=== PATIENT | female | born 1945 | race Caucasian/White ===

== ENCOUNTER 2017-08-13 02:25 | Inpatient (IN) | payer MEDICARE, BC ==
[~2017-08-13] VITALS: Ht 154.9 cm; Wt 88.6 kg
[~2017-08-13 02:25] MED LIST: CALC-1197 PO; ESCI20TA29 PO; ESTR0.3T10 PO; FISH OIL DR 1,1 EACH PO; FURO-150 PO; GABA-338 PO; HYDR12.522 PO; MULT-1141 PO; NEBI20TA2 PO; OMEP-84 PO; POTA99TA10 PO; VITC500T PO; [UNRECOGNIZED DRUG - CODE] PO
[2017-08-13] MEDS ORDERED: diazepam 5mg tablet PO ONE (02:45)
[2017-08-13] MEDS ORDERED: ondansetron/PF 4mg/2ml inj IV ONE (02:45)
[2017-08-13] MEDS ORDERED: ketorolac tromethamine 15mg/ml inj. IV ONE (04:25)
[2017-08-13] MEDS ORDERED: normal saline 1000ml 1,000 ML IV SCH (04:58)
[2017-08-13] MEDS ORDERED: ondansetron/PF 4mg/2ml inj IV PRN (05:00)
[2017-08-13] MEDS ORDERED: bisacodyl 10mg suppository rectal RC PRN (05:00)
[2017-08-13] MEDS ORDERED: HYDROcodone/acetaminophen 5mg/325mg tablet PO PRN (05:00)
[2017-08-13] MEDS ORDERED: acetaminophen 325mg tablet PO PRN ×2 (05:00)
[2017-08-13] MEDS ORDERED: acetaminophen 650mg rectal suppository RC PRN (05:00)
[2017-08-13] MEDS ORDERED: metoclopramide 5 mg/ml inj IV PRN (05:00)
[2017-08-13] MEDS ORDERED: diphenhydrAMINE 25mg capsule PO PRN (05:00)
[2017-08-13] MEDS ORDERED: magnesium hydroxide 30ml (MOM) UD suspension PO PRN (05:00)
[2017-08-13] MEDS ORDERED: HYDROcodone/acetaminophen 10/325mg tab PO PRN (05:00)
[2017-08-13] MEDS ORDERED: HYDROmorphone 1 mg/ml syringe IV PRN ×2 (05:00)
[2017-08-13] MEDS ORDERED: mag hydrox/Alum hydrox/simeth 30ml oral suspension PO PRN (05:00)
[2017-08-13] MEDS ORDERED: diphenhydrAMINE 50 mg/ml inj IV PRN (05:00)
[2017-08-13] MEDS ORDERED: glucagon, human recombinant 1mg kit SUBCUT PRN (05:05)
[2017-08-13] MEDS ORDERED: dextrose 50%-water 50ml dispensing syringe IV PRN ×2 (05:05)
[2017-08-13] MEDS ORDERED: dextrose ORAL solution 15 GM/59 ML bottle PO PRN ×2 (05:05)
[2017-08-13] MEDS ORDERED: MESSAGE TO PHARMACY PO ONE (05:05)
[2017-08-13] MEDS ORDERED: insulin Lispro (HumaLOG) vial - multi-dose SQ SCH (05:05)
[2017-08-13 05:50] VITALS: BP 156/81
[2017-08-13 06:39] LABS: BASOPHILS # (AUTO) 0.1 X10'3 (0-0.2); BASOPHILS % (AUTO) 0.8 % (0-1); EOSINOPHILS # (AUTO) 0.3 X10'3 (0-0.9); EOSINOPHILS % (AUTO) 3.6 % (0-6); HEMOGLOBIN 11.9 g/dl (12.0-16.0); LYMPHOCYTES # (AUTO) 2.9 X10'3 (1.1-4.8); LYMPHOCYTES % (AUTO) 33.6 % (21-51); MEAN CORPUSCULAR HEMOGLOBIN 32.5 PG (27.0-31.0); MEAN CORPUSCULAR VOLUME 98.7 FL (78-98); MEAN PLATELET VOLUME 7.9 FL (7.4-10.4); MONOCYTES # (AUTO) 1.7 X10'3 (0-0.9); MONOCYTES % (AUTO) 19.1 % (2-12); NEUTROPHILS # (AUTO) 3.7 X10'3 (1.8-7.7); NEUTROPHILS % (AUTO) 42.9 % (42-75); PLATELET COUNT 239 X10'3 (140-440); RED BLOOD COUNT 3.64 X10'6 (4.20-5.60); WHITE BLOOD COUNT 8.7 X10'3 (4.5-11.0)
[2017-08-13 06:47] LABS: INR 0.9 INR; PARTIAL THROMBOPLASTIN TIME 25 SECONDS (22-32); PROTHROMBIN TIME 9.7 SECONDS (9.0-12.0)
[2017-08-13 06:51] LABS: CLARITY,URINE CLEAR (Clear); COLOR,URINE YELLOW (Yellow); GLUCOSE, URINE NEGATIVE (Neg); KETONES,URINE NEGATIVE (Neg); LEUKOCYTE ESTERASE ,URINE SMALL (Neg); NITRITES, URINE NEGATIVE (Neg); OCCULT BLOOD,URINE TRACE-INTACT (Neg); PROTEIN,URINE NEGATIVE (Neg); UROBILINOGEN,URINE 0.2 E.U/dL (0.2-1.0)
[2017-08-13 06:53] LABS: UA COLLECTION TYPE CLN CATCH MIDSTREAM
[2017-08-13 07:04] LABS: BACTERIA,URINE 3+ /HPF (Neg); RBC,URINE 0-2 /HPF (0-2); SQUAMOUS EPITHELIAL CELL,UR MODERATE /LPF (FEW); WBC,URINE 0-4 /HPF (0-4)
[2017-08-13 07:06] LABS: HEMOGLOBIN A1C 5.6 % (4.5-6.2)
[2017-08-13 07:15] LABS: ALANINE AMINOTRANSFERASE 30 U/L (12-78); ALBUMIN 3.5 G/DL (3.4-5.0); ALKALINE PHOSPHATASE 78 IU/L (46-116); ANION GAP 6 (8-16); ASPARTATE AMINO TRANSFERASE 22 U/L (10-37); BILIRUBIN,TOTAL 0.5 MG/DL (0.1-1.0); BLOOD UREA NITROGEN 35 MG/DL (7-18); BUN/CREATININE RATIO 26.3 (6.6-38.0); CALCIUM 9.4 MG/DL (8.5-10.1); CHLORIDE 104 MMOL/L (99-107); CREATININE 1.33 MG/DL (0.40-0.90); GLUCOSE 90 MG/DL (70-104); POTASSIUM 3.9 MMOL/L (3.5-5.1); SODIUM 143 MMOL/L (135-145); TOTAL CARBON DIOXIDE 33.1 MMOL/L (24-32); TOTAL PROTEIN 6.9 G/DL (6.4-8.2); eGFR 39 ML/MIN
[2017-08-13] MEDS ORDERED: pantoprazole 40mg Tablet.DR PO SCH (07:30)
[2017-08-13] MEDS ORDERED: estrogen, conjugated 0.625mg tablet PO SCH (08:00)
[2017-08-13] MEDS ORDERED: heparin, porcine 5000 units/ml vial SQ SCH (08:00)
[2017-08-13] MEDS ORDERED: citalopram 20mg tablet PO SCH (08:00)
[2017-08-13] MEDS ORDERED: docusate sod 100mg capsule PO SCH (08:00)
[2017-08-13 09:00] VITALS: BP 145/63
[2017-08-13 10:00] VITALS: BP 134/66
[2017-08-13] MEDS ORDERED: ascorbic acid 500mg tablet PO SCH (20:00)
[2017-08-13] MEDS ORDERED: gabapentin 300mg capsule PO SCH (21:00)
[2017-08-13] MEDS ORDERED: temazepam 15mg capsule PO PRN (21:00)
[2017-08-14] MEDS ORDERED: HYDROchlorothiazide 25mg tablet PO SCH (08:00)
[2017-08-14] MEDS ORDERED: non-formulary drug (Potassium Gluconate 99 MG) PO SCH (08:00)
[2017-08-14] MEDS ORDERED: calcium carbonate/vitamin D3 tablet PO SCH (08:00)
[2017-08-14] MEDS ORDERED: FISH OIL PO SCH (08:00)
[2017-08-14] MEDS ORDERED: multivitamins, therapeutics tablet PO SCH (08:00)
[2017-08-14] MEDS ORDERED: FATTY ACIDS PO SCH (08:00)
[2017-08-14] MEDS ORDERED: OMEGA PO SCH (08:00)
[2017-08-14] MEDS ORDERED: furosemide 20MG tablet PO SCH (08:00)
[2017-08-14] MEDS ORDERED: ECHINACEA PO SCH (08:00)
== END 2017-08-13 15:30 | disposition home or self-care (01) | DRG 552 ==
LOC: ER 02:26 → ED HOLD 04:58 → ORTHO 4S 05:42
PROVIDERS: ADMIT Family Medicine; ATTEND Internal Medicine
DX: M54.5 Low back pain (principal); E11.42 Type 2 diabetes mellitus with diabetic polyneuropathy; I11.0 Hypertensive heart disease with heart failure; I50.30 Unspecified diastolic (congestive) heart failure; E78.00 Pure hypercholesterolemia, unspecified; G89.29 Other chronic pain; R09.02 Hypoxemia; Z90.710 Acquired absence of both cervix and uterus; Z88.0 Allergy status to penicillin; Z88.7 Allergy status to serum and vaccine; Z88.8 Allergy status to other drugs, medicaments and biological substances; Z91.012 Allergy to eggs; Z79.899 Other long term (current) drug therapy; Z85.6 Personal history of leukemia
CPT/HCPCS: 36415; 72131; 80053; 81001; 82948; 83036; 83735; 83880; 85025; 85610; 85730; 87070; 87077; 87088; 87186; 96374; 96375; 96376; 97161; 97530; 99285; J1644; J1885; J2270; J2405; J7030

== ENCOUNTER 2018-04-19 20:03 | Emergency (ER) | payer MEDICARE, BC | END 2018-04-19 22:50 | disposition left against medical advice (07) | LOC: ER 20:03 | DX: M79.606 Pain in leg, unspecified (principal); Z53.21 Procedure and treatment not carried out due to patient leaving prior to being seen by health care provider ==

== ENCOUNTER 2019-03-23 04:20 | Inpatient (IN) | payer MEDICARE, BC ==
[~2019-03-23] VITALS: Ht 154.9 cm; Wt 104.5 kg
[2019-03-23] MEDS ORDERED: methylPREDNISolone sod succ 125mg/2ml vial IV ONE (04:40)
[2019-03-23] MEDS ORDERED: ipratropium/albuterol 3ml nebule NEB ONE ×2 (04:40→06:25)
[2019-03-23] MEDS ORDERED: METO1TAB12 PO (04:44)
[2019-03-23] MEDS ORDERED: PANT-47 PO (04:44)
[2019-03-23] MEDS ORDERED: COL0.6T PO (04:44)
[2019-03-23] MEDS ORDERED: PIOG15TA8 PO (04:44)
[2019-03-23] MEDS ORDERED: LOSA25TA96 PO (04:44)
[2019-03-23] MEDS ORDERED: AMLO5TAB4 PO (04:44)
[2019-03-23] MEDS ORDERED: GABA-532 PO ×2 (04:44)
[2019-03-23] MEDS ORDERED: EST1T PO (04:44)
--- NOTE | 2019-03-23 04:50 | NUR ---
POST NEB PT COUGHED GREENISH YELLOW PHLEGMN.
--- NOTE | 2019-03-23 04:52 | NUR ---
PT REMAINS WHEEZY S/P NEB TREATMENT, BUT NOT BAD. STRIDOR AUDIBLE WHEN AUSCULTATION TO THROAT. OROPHARYNX A LITTLE RED. PT STATES IT HAS BEEN SORE, SHE HAS BEEN GARGLING WITH SALT WATER AND THAT HAS HELPED.
[2019-03-23 04:53] LABS: BASOPHILS # (AUTO) 0.1 X10'3 (0-0.2); BASOPHILS % (AUTO) 0.4 % (0-1); EOSINOPHILS # (AUTO) 0.1 X10'3 (0-0.9); EOSINOPHILS % (AUTO) 0.7 % (0-6); HEMATOCRIT 33.2 % (35.0-45.0); HEMOGLOBIN 10.9 g/dl (12.0-16.0); LYMPHOCYTES # (AUTO) 1.7 X10'3 (1.1-4.8); LYMPHOCYTES % (AUTO) 10.3 % (21-51); MEAN CORPUSCULAR HEMOGLOBIN 32.1 PG (27.0-31.0); MEAN CORPUSCULAR VOLUME 97.2 FL (78-98); MEAN PLATELET VOLUME 7.7 FL (7.4-10.4); MONOCYTES # (AUTO) 2.7 X10'3 (0-0.9); MONOCYTES % (AUTO) 16.6 % (2-12); NEUTROPHILS # (AUTO) 11.9 X10'3 (1.8-7.7); PLATELET COUNT 271 X10'3 (140-440); RED BLOOD COUNT 3.41 X10'6 (4.20-5.60); WHITE BLOOD COUNT 16.5 X10'3 (4.5-11.0)
[2019-03-23] MEDS ORDERED: furosemide 40mg/4ml inj IV ONE (04:55)
[2019-03-23 05:00] LABS: PARTIAL THROMBOPLASTIN TIME 30 SECONDS (22-32)
[2019-03-23 05:01] LABS: ALANINE AMINOTRANSFERASE 32 U/L (12-78); ALBUMIN 2.7 G/DL (3.4-5.0); ALBUMIN/GLOBULIN RATIO 0.6 (1.1-1.5); ALKALINE PHOSPHATASE 109 IU/L (46-116); ANION GAP 8 (8-16); ASPARTATE AMINO TRANSFERASE 19 U/L (10-37); BILIRUBIN,TOTAL 0.4 MG/DL (0.1-1.0); BLOOD UREA NITROGEN 18 MG/DL (7-18); BUN/CREATININE RATIO 16.4 (6.6-38.0); CALCIUM 8.9 MG/DL (8.5-10.1); CHLORIDE 104 MMOL/L (99-107); GLUCOSE 117 MG/DL (70-104); POTASSIUM 3.7 MMOL/L (3.5-5.1); SODIUM 139 MMOL/L (135-145); TOTAL CARBON DIOXIDE 26.6 MMOL/L (24-32); TOTAL PROTEIN 7.2 G/DL (6.4-8.2); eGFR 49 ML/MIN
[2019-03-23] MEDS ORDERED: albuterol 2.5 MG/3 ML nebule NEB ONE ×2 (05:20→06:25)
[2019-03-23] MEDS ORDERED: CefTRIAXone 2gm/D5W 50ml 50 ML IV ONE (05:20)
[2019-03-23] MEDS ORDERED: azithromycin/NS 500mg/250ml 250 ML IV ONE (05:20)
[2019-03-23] MEDS ORDERED: acetaminophen 325mg tablet PO ONE (06:10)
[2019-03-23 06:18] LABS: CLARITY,URINE CLEAR (Clear); COLOR,URINE STRAW (Yellow); GLUCOSE, URINE NEGATIVE (Neg); KETONES,URINE NEGATIVE (Neg); LEUKOCYTE ESTERASE ,URINE NEGATIVE (Neg); NITRITES, URINE NEGATIVE (Neg); OCCULT BLOOD,URINE LARGE (Neg); PH,URINE 5.5 (4.8-8.0); PROTEIN,URINE 100 mg/dl (Neg); UA COLLECTION TYPE CLN CATCH MIDSTREAM; UROBILINOGEN,URINE 0.2 E.U/dL (0.2-1.0)
[2019-03-23 06:20] LABS: BACTERIA,URINE 1+ /HPF (Neg); MUCUS STRANDS NONE SEEN /LPF (Neg); SQUAMOUS EPITHELIAL CELL,UR MODERATE /LPF (FEW); WBC,URINE 0-4 /HPF (0-4)
--- NOTE | 2019-03-23 06:26 | NUR ---
BELONGING LISTS:NECKLACE,WEDDING RING,EARINGS.
[2019-03-23] MEDS ORDERED: MESSAGE TO PHARMACY PO ONE (06:35)
[2019-03-23] MEDS ORDERED: ondansetron/PF 4mg/2ml inj IV PRN (06:35)
[2019-03-23] MEDS ORDERED: albuterol 2.5 MG/3 ML nebule NEB PRN (06:35)
[2019-03-23] MEDS ORDERED: dextrose 50%-water 50ml dispensing syringe IV PRN ×2 (06:35)
[2019-03-23] MEDS ORDERED: dextrose ORAL solution 15 GM/59 ML bottle PO PRN ×2 (06:35)
[2019-03-23] MEDS ORDERED: glucagon, human recombinant 1mg kit SUBCUT PRN (06:35)
[2019-03-23] MEDS ORDERED: acetaminophen 325mg tablet PO PRN ×2 (06:35)
[2019-03-23] MEDS ORDERED: mag hydrox/Alum hydrox/simeth 30ml oral suspension PO PRN (06:35)
[2019-03-23] MEDS ORDERED: magnesium hydroxide 30ml (MOM) UD suspension PO PRN (06:35)
[2019-03-23] MEDS ORDERED: HYDROcodone/acetaminophen 5mg/325mg tablet PO PRN (06:35)
[2019-03-23] MEDS ORDERED: HYDROcodone/acetaminophen 10/325mg tab PO PRN (06:35)
[2019-03-23] MEDS ORDERED: insulin Lispro (HumaLOG) vial - multi-dose SQ SCH (06:35)
[2019-03-23] MEDS ORDERED: albuterol 2.5 MG/3 ML nebule ONE (06:38)
[2019-03-23 06:43] LABS: NUCLEATED RED BLOOD CELLS 1 /100WBC (0-0); PLATELET ESTIMATE NORMAL; TOTAL CELLS COUNTED 100
[2019-03-23 06:44] LABS: ANISOCYTOSIS 1+; POLYCHROMASIA 1+; TOXIC GRANULATION 2+
[2019-03-23 06:55] LABS: ABG BASE EXCESS -0.4 mmol/L (-2.0-3.0); ABG HCO3 23.9 mmol/L (22.0-26.0); ABG OXYGEN SATURATION 92.5 % (95-98); ABG PCO2 (T) 38.2 mmHg (35.0-45.0); ABG PH (T) 7.415 (7.350-7.450); ABG PO2 (T) 66.6 mmHg (83-108); ALLEN'S TEST Positive; FCOHb 0.3 % (0.5-1.5); FLOW 2 L/min; FMetHb 0.2 % (0.3-1.12); TOTAL HEMOGLOBIN 10.3 G/dl (12.0-16.0)
[2019-03-23] MEDS ORDERED: ipratropium/albuterol 3ml nebule NEB SCH (07:00)
--- NOTE | 2019-03-23 07:40 | NUR ---
patient on bsc.
[2019-03-23] MEDS ORDERED: levalbuterol 0.63mg/3ml nebule IH PRN (07:45)
[2019-03-23] MEDS: HYDROchlorothiazide 25mg tablet PO SCH (07:48)
[2019-03-23] MEDS: gabapentin 300mg capsule PO SCH ×2 (07:49→20:04)
[2019-03-23] MEDS: calcium carbonate/vitamin D3 tablet PO SCH (07:49)
[2019-03-23] MEDS: metoprolol tartrate 50mg tablet PO SCH (07:49)
[2019-03-23] MEDS: citalopram 20mg tablet PO SCH (07:50)
[2019-03-23] MEDS: ascorbic acid 500mg tablet PO SCH ×2 (07:50→20:04)
[2019-03-23] MEDS: pantoprazole 40mg Tablet.DR PO SCH (07:50)
[2019-03-23] MEDS: multivitamins, therapeutics tablet PO SCH (07:50)
[2019-03-23] MEDS: amLODIPine 5mg tablet PO SCH (07:50)
[2019-03-23] MEDS: methylPREDNISolone sod succ 125mg/2ml vial IV SCH ×3 (07:51→20:04)
[2019-03-23] MEDS: enoxaparin 40mg/0.4ml syringe SUBCUT SCH (07:51)
[2019-03-23] MEDS: azithromycin/NS 500mg/250ml 250 ML IV SCH (07:54)
[2019-03-23] MEDS ORDERED: furosemide 20MG tablet PO SCH (08:00)
[2019-03-23] MEDS ORDERED: ECHINACEA PO SCH (08:00)
[2019-03-23] MEDS ORDERED: pioglitazone 15mg tablet PO SCH (08:00)
--- NOTE | 2019-03-23 08:06 | NUR ---
received pt report from Teto CARVALHO. All questions answered.
[2019-03-23 08:27] LABS: D-DIMER 1.14 MG/L FEU (0-0.50)
[2019-03-23 08:36] VITALS: BP 122/51
--- NOTE | 2019-03-23 08:36 | NUR ---
pt arrived to floor via gurney and ambulated to bed SBA. pt attached to cardiac monitoring; VSS. pt oriented to room and call light.
[2019-03-23 08:45] LABS: HEMOGLOBIN A1C 6.1 % (4.5-6.2)
--- NOTE | 2019-03-23 09:03 | NUR ---
LACIC ACID 4.6. DR MUNGUIA INFORMED. NO NEW ORDERS AT THIS TIME.
[2019-03-23] MEDS: omega-3 acid ethyl esters 1GM capsule PO SCH (10:28)
[2019-03-23] MEDS: losartan 50mg tablet PO SCH (10:28)
[2019-03-23] MEDS: colchicine 0.6mg tablet PO SCH (10:41)
[2019-03-23 11:00] VITALS: BP 138/60
[2019-03-23 15:00] VITALS: BP 164/64
[2019-03-23] MEDS: ipratropium 0.5 MG/2.5ML nebule IH SCH ×2 (15:52→20:38)
[2019-03-23] MEDS: levalbuterol 0.63mg/3ml nebule IH SCH ×2 (15:52→20:38)
--- NOTE | 2019-03-23 18:34 | NUR ---
Problems reprioritized. Patient report given, questions answered & plan of care reviewed with Rocio CARVALHO.
[2019-03-23 19:00] VITALS: BP 144/67
[2019-03-23] MEDS: lactobacillus rhamnosus 10,000 MMU CELLS/CAPSULE PO SCH (20:04)
[2019-03-23] MEDS ORDERED: hydrOXYzine 25 MG tablet PO ONE (20:15)
[2019-03-23] MEDS: insulin glargine (Lantus) pen - multi-dose SQ SCH (21:00)
[2019-03-23 23:00] VITALS: BP 152/60
[2019-03-24] VITALS (7 sets, daily range): BP systolic 143–170; BP diastolic 63–72
[2019-03-24] MEDS ORDERED: Melatonin 3mg tablet PO PRN (01:05)
--- NOTE | 2019-03-24 01:13 | NUR ---
pt c/o diarrhea, stated that " I have IBS for years." Callled Dr. Kasper, he said the [facility] doctor can address that .
[2019-03-24] MEDS: ipratropium 0.5 MG/2.5ML nebule IH SCH ×4 (02:52→19:35)
[2019-03-24] MEDS: levalbuterol 0.63mg/3ml nebule IH SCH ×4 (02:53→19:35)
--- NOTE | 2019-03-24 06:00 | NUR ---
Patient in room PCU 3013. I have received report from Rocio CARVALHO and had the opportunity to ask questions and assume patient care.
[2019-03-24 06:40] LABS: ALBUMIN 2.6 G/DL (3.4-5.0); ANION GAP 12 (8-16); BLOOD UREA NITROGEN 32 MG/DL (7-18); BUN/CREATININE RATIO 24.4 (6.6-38.0); CALCIUM 8.5 MG/DL (8.5-10.1); CHLORIDE 102 MMOL/L (99-107); CHOL/HDL RATIO 3.1 (0.00-4.99); CHOLESTEROL 138 MG/DL (0-200); CREATININE 1.31 MG/DL (0.40-0.90); GLUCOSE 137 MG/DL (70-104); HDL CHOLESTEROL 44 MG/DL (35-60); LDL CHOLESTEROL 83 MG/DL (50-100); POTASSIUM 3.3 MMOL/L (3.5-5.1); SODIUM 141 MMOL/L (135-145); TOTAL CARBON DIOXIDE 27.2 MMOL/L (24-32); TRIGLYCERIDES 84 MG/DL (20-135); eGFR 40 ML/MIN
[2019-03-24 07:26] LABS: BASOPHILS # (AUTO) 0.1 X10'3 (0-0.2); BASOPHILS % (AUTO) 0.5 % (0-1); EOSINOPHILS % (AUTO) 0 % (0-6); HEMATOCRIT 33.3 % (35.0-45.0); LYMPHOCYTES # (AUTO) 1.5 X10'3 (1.1-4.8); LYMPHOCYTES % (AUTO) 9.5 % (21-51); MEAN CORPUSCULAR HEMOGLOBIN 32.2 PG (27.0-31.0); MEAN CORPUSCULAR HGB CONC 33.1 g/dL (33.0-36.5); MEAN CORPUSCULAR VOLUME 97.2 FL (78-98); MONOCYTES # (AUTO) 1.6 X10'3 (0-0.9); MONOCYTES % (AUTO) 10.1 % (2-12); NEUTROPHILS # (AUTO) 12.9 X10'3 (1.8-7.7); NEUTROPHILS % (AUTO) 79.9 % (42-75); PLATELET COUNT 288 X10'3 (140-440); RED BLOOD COUNT 3.42 X10'6 (4.20-5.60); RED CELL DISTRIBUTION WIDTH 15.1 % (11.5-14.5); WHITE BLOOD COUNT 16.1 X10'3 (4.5-11.0)
[2019-03-24] MEDS: CefTRIAXone/D5W-Rocephin 1gm 50 ML IV SCH (07:44)
[2019-03-24] MEDS: azithromycin/NS 500mg/250ml 250 ML IV SCH (08:43)
--- NOTE | 2019-03-24 09:28 | NUR ---
DM consult: Patient's A1c is 6.1; DM ed not warranted at this time. Will continue to follow. Addendum: 03/24/19 at [address] Amended: Links added.
[2019-03-24 09:35] LABS: ANISOCYTOSIS 1+; PLATELET ESTIMATE NORMAL; TOTAL CELLS COUNTED 100
[2019-03-24 09:36] LABS: TOXIC GRANULATION 2+
[2019-03-24] MEDS: omega-3 acid ethyl esters 1GM capsule PO SCH (10:07)
[2019-03-24] MEDS: lactobacillus rhamnosus 10,000 MMU CELLS/CAPSULE PO SCH ×2 (10:07→21:16)
[2019-03-24] MEDS: colchicine 0.6mg tablet PO SCH (10:07)
[2019-03-24] MEDS: ascorbic acid 500mg tablet PO SCH ×2 (10:08→21:17)
[2019-03-24] MEDS: multivitamins, therapeutics tablet PO SCH (10:08)
[2019-03-24] MEDS: calcium carbonate/vitamin D3 tablet PO SCH (10:09)
[2019-03-24] MEDS: pantoprazole 40mg Tablet.DR PO SCH (10:09)
[2019-03-24] MEDS: amLODIPine 5mg tablet PO SCH (10:10)
[2019-03-24] MEDS: gabapentin 300mg capsule PO SCH ×2 (10:10→21:16)
[2019-03-24] MEDS: losartan 50mg tablet PO SCH (10:11)
[2019-03-24] MEDS: citalopram 20mg tablet PO SCH (10:11)
[2019-03-24] MEDS: enoxaparin 40mg/0.4ml syringe SUBCUT SCH (10:12)
[2019-03-24] MEDS: methylPREDNISolone sod succ 125mg/2ml vial IV SCH ×3 (10:13→21:16)
[2019-03-24] MEDS: metoprolol tartrate 50mg tablet PO SCH (10:14)
[2019-03-24] MEDS: HYDROchlorothiazide 25mg tablet PO SCH (10:15)
--- NOTE | 2019-03-24 10:35 | NUR ---
Patient provided with vibratory mouth piece per MD request. Educated patient on proper use and she demonstrated proper use.
[2019-03-24] MEDS: montelukast 10mg tablet PO SCH (17:32)
--- NOTE | 2019-03-24 17:32 | NUR ---
Pt starting on Singulair, medication printout provided per pt request.
--- NOTE | 2019-03-24 18:00 | NUR ---
Problems reprioritized. Patient report given, questions answered & plan of care reviewed with Rocio CARVALHO.
--- NOTE | 2019-03-24 18:15 | NUR ---
Patient in room PCU 3013. I have received report from Senia CARVALHO and had the opportunity to ask questions and assume patient care.
[2019-03-24] MEDS ORDERED: potassium CL 10mEq/100ml bag 100 ML IV PRN (19:40)
[2019-03-24] MEDS ORDERED: potassium Cl 20 mEq SR tablet PO PRN (19:40)
[2019-03-24] MEDS: insulin glargine (Lantus) pen - multi-dose SQ SCH (21:00)
[2019-03-24] MEDS: potassium Cl 20 mEq SR tablet PO PRN (21:17)
[2019-03-25] MEDS: ipratropium 0.5 MG/2.5ML nebule IH SCH ×2 (02:48→09:53)
[2019-03-25] MEDS: levalbuterol 0.63mg/3ml nebule IH SCH ×2 (02:48→09:53)
[2019-03-25] MEDS: potassium Cl 20 mEq SR tablet PO PRN (02:51)
[2019-03-25 03:00] VITALS: BP 161/65
--- NOTE | 2019-03-25 06:24 | NUR ---
Problems reprioritized. Patient report given, questions answered & plan of care reviewed with Nicole CARVALHO.
--- NOTE | 2019-03-25 06:26 | NUR ---
Patient in room PCU 3013. I have received report from Rocio CARVALHO and had the opportunity to ask questions and assume patient care.
[2019-03-25 06:50] LABS: BASOPHILS # (AUTO) 0.1 X10'3 (0-0.2); BASOPHILS % (AUTO) 0.5 % (0-1); EOSINOPHILS % (AUTO) 0.2 % (0-6); HEMATOCRIT 33.2 % (35.0-45.0); HEMOGLOBIN 11.1 g/dl (12.0-16.0); LYMPHOCYTES # (AUTO) 1.7 X10'3 (1.1-4.8); MEAN CORPUSCULAR HEMOGLOBIN 32.7 PG (27.0-31.0); MEAN CORPUSCULAR HGB CONC 33.4 g/dL (33.0-36.5); MEAN PLATELET VOLUME 7.9 FL (7.4-10.4); MONOCYTES # (AUTO) 1.8 X10'3 (0-0.9); MONOCYTES % (AUTO) 11.5 % (2-12); NEUTROPHILS # (AUTO) 12.1 X10'3 (1.8-7.7); NEUTROPHILS % (AUTO) 76.8 % (42-75); PLATELET COUNT 315 X10'3 (140-440); RED BLOOD COUNT 3.38 X10'6 (4.20-5.60); RED CELL DISTRIBUTION WIDTH 14.9 % (11.5-14.5); WHITE BLOOD COUNT 15.7 X10'3 (4.5-11.0)
[2019-03-25 07:00] VITALS: BP 150/67
[2019-03-25 07:06] LABS: ALBUMIN 2.6 G/DL (3.4-5.0); ANION GAP 11 (8-16); BLOOD UREA NITROGEN 43 MG/DL (7-18); BUN/CREATININE RATIO 32.8 (6.6-38.0); CALCIUM 8.5 MG/DL (8.5-10.1); CHLORIDE 104 MMOL/L (99-107); CREATININE 1.31 MG/DL (0.40-0.90); GLUCOSE 128 MG/DL (70-104); POTASSIUM 3.5 MMOL/L (3.5-5.1); SODIUM 141 MMOL/L (135-145); eGFR 40 ML/MIN
[2019-03-25] MEDS: azithromycin/NS 500mg/250ml 250 ML IV SCH (08:53)
[2019-03-25] MEDS: omega-3 acid ethyl esters 1GM capsule PO SCH (08:54)
[2019-03-25] MEDS: ascorbic acid 500mg tablet PO SCH ×2 (08:54→20:13)
[2019-03-25] MEDS: HYDROchlorothiazide 25mg tablet PO SCH (08:54)
[2019-03-25] MEDS: colchicine 0.6mg tablet PO SCH (08:54)
[2019-03-25] MEDS: multivitamins, therapeutics tablet PO SCH (08:55)
[2019-03-25] MEDS: losartan 50mg tablet PO SCH (08:55)
[2019-03-25] MEDS: citalopram 20mg tablet PO SCH (08:55)
[2019-03-25] MEDS: metoprolol tartrate 50mg tablet PO SCH (08:55)
[2019-03-25] MEDS: pantoprazole 40mg Tablet.DR PO SCH (08:55)
[2019-03-25] MEDS: calcium carbonate/vitamin D3 tablet PO SCH (08:55)
[2019-03-25] MEDS: montelukast 10mg tablet PO SCH (08:55)
[2019-03-25] MEDS: gabapentin 300mg capsule PO SCH ×2 (08:56→20:14)
[2019-03-25] MEDS: enoxaparin 40mg/0.4ml syringe SUBCUT SCH (08:56)
[2019-03-25] MEDS: amLODIPine 5mg tablet PO SCH (08:56)
[2019-03-25] MEDS: lactobacillus rhamnosus 10,000 MMU CELLS/CAPSULE PO SCH ×2 (08:56→20:13)
[2019-03-25] MEDS: CefTRIAXone/D5W-Rocephin 1gm 50 ML IV SCH (08:57)
[2019-03-25] MEDS: methylPREDNISolone sod succ 125mg/2ml vial IV SCH ×2 (09:56→20:14)
[2019-03-25] MEDS ORDERED: albuterol 2.5 MG/3 ML nebule NEB PRN (10:00)
[2019-03-25 10:55] LABS: OCCULT BLOOD STOOL NEGATIVE (Neg)
[2019-03-25 11:00] VITALS: BP 145/52
[2019-03-25 15:00] VITALS: BP 125/71
[2019-03-25] MEDS: ipratropium/albuterol 3ml nebule NEB SCH ×2 (15:42→21:08)
--- NOTE | 2019-03-25 18:17 | NUR ---
Patient in room PCU 3013. I have received report from Radha CARVALHO and had the opportunity to ask questions and assume patient care.
--- NOTE | 2019-03-25 18:30 | NUR ---
Problems reprioritized. Patient report given, questions answered & plan of care reviewed with Rocio CARVALHO.
[2019-03-25 19:00] VITALS: BP 154/52
[2019-03-25] MEDS: insulin glargine (Lantus) pen - multi-dose SQ SCH (21:00)
[2019-03-25 23:00] VITALS: BP 149/59
[2019-03-26 03:00] VITALS: BP 159/63
[2019-03-26 06:00] VITALS: BP 174/71
--- NOTE | 2019-03-26 06:18 | NUR ---
Problems reprioritized. Patient report given, questions answered & plan of care reviewed with Radha CARVALHO.
--- NOTE | 2019-03-26 06:27 | NUR ---
Patient in room PCU 3013. I have received report from Rocio CARVALHO and had the opportunity to ask questions and assume patient care.
[2019-03-26] MEDS: azithromycin/NS 500mg/250ml 250 ML IV SCH (07:13)
[2019-03-26] MEDS: enoxaparin 40mg/0.4ml syringe SUBCUT SCH (07:13)
[2019-03-26] MEDS: colchicine 0.6mg tablet PO SCH (07:14)
[2019-03-26] MEDS: citalopram 20mg tablet PO SCH (07:14)
[2019-03-26] MEDS: multivitamins, therapeutics tablet PO SCH (07:14)
[2019-03-26] MEDS: methylPREDNISolone sod succ 125mg/2ml vial IV SCH (07:14)
[2019-03-26 07:15] VITALS: BP_SYST 174
[2019-03-26] MEDS: omega-3 acid ethyl esters 1GM capsule PO SCH (07:15)
[2019-03-26] MEDS: pantoprazole 40mg Tablet.DR PO SCH (07:15)
[2019-03-26] MEDS: metoprolol tartrate 50mg tablet PO SCH (07:15)
[2019-03-26] MEDS: HYDROchlorothiazide 25mg tablet PO SCH (07:15)
[2019-03-26] MEDS: lactobacillus rhamnosus 10,000 MMU CELLS/CAPSULE PO SCH (07:16)
[2019-03-26] MEDS: calcium carbonate/vitamin D3 tablet PO SCH (07:16)
[2019-03-26] MEDS: ascorbic acid 500mg tablet PO SCH (07:16)
[2019-03-26] MEDS: montelukast 10mg tablet PO SCH (07:16)
[2019-03-26] MEDS: gabapentin 300mg capsule PO SCH (07:16)
[2019-03-26] MEDS: amLODIPine 5mg tablet PO SCH (07:16)
[2019-03-26] MEDS: losartan 50mg tablet PO SCH (07:16)
[2019-03-26 07:27] LABS: BASOPHILS # (AUTO) 0.1 X10'3 (0-0.2); BASOPHILS % (AUTO) 0.7 % (0-1); EOSINOPHILS % (AUTO) 0 % (0-6); HEMATOCRIT 35.6 % (35.0-45.0); HEMOGLOBIN 11.9 g/dl (12.0-16.0); LYMPHOCYTES # (AUTO) 1.8 X10'3 (1.1-4.8); MEAN CORPUSCULAR HEMOGLOBIN 32.3 PG (27.0-31.0); MEAN CORPUSCULAR HGB CONC 33.4 g/dL (33.0-36.5); MEAN CORPUSCULAR VOLUME 96.8 FL (78-98); MEAN PLATELET VOLUME 7.9 FL (7.4-10.4); MONOCYTES # (AUTO) 2.2 X10'3 (0-0.9); MONOCYTES % (AUTO) 13.2 % (2-12); NEUTROPHILS # (AUTO) 12.3 X10'3 (1.8-7.7); NEUTROPHILS % (AUTO) 75.1 % (42-75); PLATELET COUNT 334 X10'3 (140-440); RED BLOOD COUNT 3.67 X10'6 (4.20-5.60); WHITE BLOOD COUNT 16.4 X10'3 (4.5-11.0)
[2019-03-26] MEDS: CefTRIAXone/D5W-Rocephin 1gm 50 ML IV SCH (08:30)
[2019-03-26] MEDS: ipratropium/albuterol 3ml nebule NEB SCH (09:04)
[2019-03-26] MEDS ORDERED: PRED20TA PO (11:42)
[2019-03-26] MEDS ORDERED: IPRA3AMP9 NEB (11:42)
[2019-03-26] MEDS ORDERED: MONT10TA24 PO (11:42)
[2019-03-26] MEDS ORDERED: CEFU500T66 PO (11:42)
--- NOTE | 2019-03-26 13:45 | NUR ---
Pt discharged. IV d/c'd, tele removed, all belongings sent with pt and , and pt wheeled down to private vehicle.
[2019-03-26 15:13] LABS: NUCLEATED RED BLOOD CELLS 1 /100WBC (0-0); TOTAL CELLS COUNTED 100
[2019-03-26 15:14] LABS: TOXIC GRANULATION 3+; TOXIC VACUOLATION 1+
[2019-03-26 15:15] LABS: ANISOCYTOSIS 1+; PLATELET ESTIMATE NORMAL; POLYCHROMASIA FEW
[2019-03-26 15:16] LABS: SPHEROCYTES 1+
== END 2019-03-26 13:45 | disposition home or self-care (01) | DRG 871 ==
LOC: ER 04:21 → PCU 3S 08:14
PROVIDERS: ADMIT Hospitalist; ATTEND Family Medicine
PROC: CB121ZZ Planar Nuclear Medicine Imaging of Lungs and Bronchi using Technetium 99m (Tc-99m) (ICD-10-PCS; principal; 2019-03-23)
DX: A41.9 Sepsis, unspecified organism (principal); E43 Unspecified severe protein-calorie malnutrition; J96.00 Acute respiratory failure, unspecified whether with hypoxia or hypercapnia; J18.9 Pneumonia, unspecified organism; J44.1 Chronic obstructive pulmonary disease with (acute) exacerbation; I50.32 Chronic diastolic (congestive) heart failure; Z68.41 Body mass index [BMI] 40.0-44.9, adult; Z94.81 Bone marrow transplant status; I48.92 Unspecified atrial flutter; J44.0 Chronic obstructive pulmonary disease with (acute) lower respiratory infection; D64.9 Anemia, unspecified; E11.42 Type 2 diabetes mellitus with diabetic polyneuropathy; Z96.641 Presence of right artificial hip joint; G89.29 Other chronic pain; M54.9 Dorsalgia, unspecified; E78.00 Pure hypercholesterolemia, unspecified; E78.5 Hyperlipidemia, unspecified; Z79.84 Long term (current) use of oral hypoglycemic drugs; Z85.6 Personal history of leukemia; Z88.0 Allergy status to penicillin; Z88.7 Allergy status to serum and vaccine; Z88.8 Allergy status to other drugs, medicaments and biological substances; Z91.012 Allergy to eggs; Z87.891 Personal history of nicotine dependence; Z90.710 Acquired absence of both cervix and uterus; Z98.41 Cataract extraction status, right eye; Z98.42 Cataract extraction status, left eye; Z98.51 Tubal ligation status; Z98.891 History of uterine scar from previous surgery; Z79.01 Long term (current) use of anticoagulants; Z79.4 Long term (current) use of insulin
CPT/HCPCS: 36415; 36600; 71045; 78582; 80048; 80053; 80061; 81001; 82272; 82803; 82948; 83036; 83605; 83880; 84145; 84484; 85018; 85025; 85379; 85610; 85730; 87040; 87070; 87081; 93005; 93306; 94640; 94760; 96365; 96368; 96375; 97110; 97116; 97161; 97530; 99285; A9539; A9540; G0378; J0456; J0696; J1650; J1815; J1940; J2930; J7614

== ENCOUNTER 2019-10-20 11:04 | Inpatient (IN) | payer MEDICARE, OTHER ==
[~2019-10-20] VITALS: Ht 157.5 cm; Wt 102.3 kg
[~2019-10-20 11:04] MED LIST changes: +AMLO5TAB4 PO; +CEFU500T66 PO; +COL0.6T PO; +EST1T PO; -ESTR0.3T10 PO; -FURO-150 PO; -GABA-338 PO; +GABA-532 PO; -HYDR12.522 PO; +IPRA3AMP9 NEB; +LOSA25TA96 PO; +METO1TAB12 PO; +MONT10TA26 PO; -NEBI20TA2 PO; -OMEP-84 PO; +PANT-47 PO; +PIOG15TA8 PO; -POTA99TA10 PO
[2019-10-20] MEDS ORDERED: methylPREDNISolone sod succ 125mg/2ml vial IV ONE (13:45)
[2019-10-20] MEDS ORDERED: ipratropium/albuterol 3ml nebule NEB ONE (13:45)
[2019-10-20] MEDS ORDERED: furosemide 10 MG/1 ML 10ml inj IV ONE (13:45)
[2019-10-20 14:42] LABS: BASOPHILS # (AUTO) 0.1 X10'3 (0-0.2); BASOPHILS % (AUTO) 0.6 % (0-1); EOSINOPHILS % (AUTO) 0.4 % (0-6); HEMATOCRIT 36.2 % (35.0-45.0); HEMOGLOBIN 12.2 g/dl (12.0-16.0); LYMPHOCYTES # (AUTO) 0.8 X10'3 (1.1-4.8); LYMPHOCYTES % (AUTO) 8.8 % (21-51); MEAN CORPUSCULAR HEMOGLOBIN 31.6 PG (27.0-31.0); MEAN CORPUSCULAR HGB CONC 33.8 g/dL (33.0-36.5); MEAN CORPUSCULAR VOLUME 93.5 FL (78-98); MEAN PLATELET VOLUME 8.5 FL (7.4-10.4); MONOCYTES % (AUTO) 11.3 % (2-12); NEUTROPHILS # (AUTO) 7.1 X10'3 (1.8-7.7); NEUTROPHILS % (AUTO) 78.9 % (42-75); PLATELET COUNT 204 X10'3 (140-440); RED BLOOD COUNT 3.87 X10'6 (4.20-5.60); RED CELL DISTRIBUTION WIDTH 16.4 % (11.5-14.5)
[2019-10-20 15:08] LABS: ALANINE AMINOTRANSFERASE 24 U/L (12-78); ALBUMIN 3.1 G/DL (3.4-5.0); ALBUMIN/GLOBULIN RATIO 0.8 (1.1-1.5); ALKALINE PHOSPHATASE 92 IU/L (46-116); ANION GAP 6 (8-16); ASPARTATE AMINO TRANSFERASE 34 U/L (10-37); BILIRUBIN,TOTAL 0.2 MG/DL (0.1-1.0); BLOOD UREA NITROGEN 12 MG/DL (7-18); BUN/CREATININE RATIO 10.4 (6.6-38.0); CALCIUM 8.2 MG/DL (8.5-10.1); CHLORIDE 103 MMOL/L (99-107); CREATININE 1.15 MG/DL (0.40-0.90); GLUCOSE 85 MG/DL (70-104); SODIUM 143 MMOL/L (135-145); TOTAL CARBON DIOXIDE 33.9 MMOL/L (24-32); eGFR 46 ML/MIN
[2019-10-20 15:09] LABS: POTASSIUM 3.7 MMOL/L (3.5-5.1)
[2019-10-20] MEDS ORDERED: enoxaparin 100mg/ml syringe SUBCUT ONE (15:10)
[2019-10-20] MEDS ORDERED: magnesium 2GM in 50ml NS 50 ML IV PRN (16:10)
[2019-10-20] MEDS ORDERED: ondansetron/PF 4mg/2ml inj IV PRN (16:10)
[2019-10-20] MEDS ORDERED: oseltamivir phos 75mg capsule PO ONE (16:10)
[2019-10-20] MEDS ORDERED: acetaminophen 325mg tablet PO PRN ×2 (16:10)
[2019-10-20] MEDS ORDERED: magnesium Cl slow-release 64mg tablet PO PRN (16:10)
[2019-10-20] MEDS ORDERED: potassium CL 10mEq/100ml bag 100 ML IV PRN ×2 (16:10)
[2019-10-20] MEDS ORDERED: morphine 2 MG/ML inj. syringe IV PRN ×2 (16:10)
[2019-10-20] MEDS ORDERED: HYDROcodone/acetaminophen 5mg/325mg tablet PO PRN (16:10)
[2019-10-20] MEDS ORDERED: potassium Cl 20 mEq SR tablet PO PRN (16:10)
[2019-10-20] MEDS ORDERED: magnesium 4gm in 100ml NS 100 ML IV PRN (16:10)
[2019-10-20] MEDS ORDERED: HYDROcodone/acetaminophen 10/325mg tab PO PRN (16:10)
[2019-10-20] MEDS ORDERED: insulin Lispro (HumaLOG) vial - multi-dose SQ SCH (16:35)
[2019-10-20] MEDS ORDERED: glucagon, human recombinant 1mg kit SUBCUT PRN (16:35)
[2019-10-20] MEDS ORDERED: dextrose 50%-water 50ml dispensing syringe IV PRN ×2 (16:35)
[2019-10-20] MEDS ORDERED: dextrose ORAL solution 15 GM/59 ML bottle PO PRN ×2 (16:35)
[2019-10-20] MEDS ORDERED: MESSAGE TO PHARMACY PO ONE (16:35)
[2019-10-20 17:32] LABS: CLARITY,URINE CLEAR (Clear); COLOR,URINE YELLOW (Yellow); GLUCOSE, URINE NEGATIVE (Neg); KETONES,URINE NEGATIVE (Neg); LEUKOCYTE ESTERASE ,URINE NEGATIVE (Neg); NITRITES, URINE NEGATIVE (Neg); OCCULT BLOOD,URINE MODERATE (Neg); PROTEIN,URINE 100 mg/dl (Neg); UROBILINOGEN,URINE 0.2 E.U/dL (0.2-1.0)
[2019-10-20] MEDS: levoFLOXACIN-Levaquin 500mg/D5 100 ML IV SCH (17:33)
[2019-10-20 17:36] LABS: UA COLLECTION TYPE CLN CATCH MIDSTREAM
[2019-10-20 17:37] LABS: BACTERIA,URINE NONE SEEN /HPF (Neg); MUCUS STRANDS NONE SEEN /LPF (Neg); SQUAMOUS EPITHELIAL CELL,UR FEW /LPF (FEW); WBC,URINE NONE SEEN /HPF (0-4)
[2019-10-20 17:46] LABS: HEMOGLOBIN A1C 6.2 % (4.5-6.2)
--- NOTE | 2019-10-20 18:18 | NUR ---
Patient in room [facility]. I have received report from Merna CARVALHO and had the opportunity to ask questions and assume patient care. Addendum: 10/20/19 at 1840 by Sukhjinder Jose RN Patient in room [facility]010. I have received report from Marcela CARVALHO and had the opportunity to ask questions and assume patient care.
--- NOTE | 2019-10-20 18:39 | NUR ---
Problems reprioritized. Patient report given, questions answered & plan of care reviewed with MAIA Dalal.
[2019-10-20] MEDS: heparin, porcine 5000 units/ml vial SQ SCH (19:49)
[2019-10-20] MEDS: docusate sod 100mg capsule PO SCH (19:49)
[2019-10-20] MEDS: methylPREDNISolone sod succ/PF 40mg inj. IV SCH (19:50)
[2019-10-20] MEDS: K and/or MAG REPLACEMENT MC SCH (19:50)
[2019-10-20] MEDS: insulin glargine (Lantus) pen - multi-dose SQ SCH (21:00)
[2019-10-20] MEDS ORDERED: temazepam 15mg capsule PO PRN (21:00)
[2019-10-20] MEDS: oseltamivir phos 75mg capsule PO SCH (21:40)
[2019-10-20 22:00] VITALS: BP 185/79
--- NOTE | 2019-10-20 22:47 | NUR ---
Page Sent PAGER ID: [phone] MESSAGE: pt in [id number] Veronique Childress 74 y/o female here for exac COPD and Flu A positive. BP is 185/79, pt takes anti-HTN at home has not taken them today.- [place] [id number]
[2019-10-20] MEDS ORDERED: losartan 50mg tablet PO ONE (23:20)
[2019-10-20] MEDS ORDERED: metoprolol tartrate 50mg tablet PO ONE (23:20)
[2019-10-20] MEDS ORDERED: amLODIPine 5mg tablet PO ONE (23:20)
[2019-10-21] VITALS (7 sets, daily range): BP systolic 112–188; BP diastolic 54–73
[2019-10-21 05:36] LABS: ALBUMIN 2.9 G/DL (3.4-5.0); ANION GAP 9 (8-16); BLOOD UREA NITROGEN 18 MG/DL (7-18); BUN/CREATININE RATIO 14.8 (6.6-38.0); CALCIUM 8.4 MG/DL (8.5-10.1); CHLORIDE 102 MMOL/L (99-107); CREATININE 1.22 MG/DL (0.40-0.90); GLUCOSE 146 MG/DL (70-104); MAGNESIUM 1.6 MG/DL (1.5-2.4); POTASSIUM 3.2 MMOL/L (3.5-5.1); SODIUM 143 MMOL/L (135-145); TOTAL CARBON DIOXIDE 32.1 MMOL/L (24-32); eGFR 43 ML/MIN
[2019-10-21] MEDS: potassium Cl 20 mEq SR tablet PO PRN ×3 (05:43→16:17)
[2019-10-21 06:17] LABS: BASOPHILS % (AUTO) 0.6 % (0-1); EOSINOPHILS % (AUTO) 0 % (0-6); HEMATOCRIT 35.4 % (35.0-45.0); HEMOGLOBIN 11.8 g/dl (12.0-16.0); LYMPHOCYTES # (AUTO) 0.9 X10'3 (1.1-4.8); LYMPHOCYTES % (AUTO) 20.6 % (21-51); MEAN CORPUSCULAR HEMOGLOBIN 31.1 PG (27.0-31.0); MEAN CORPUSCULAR HGB CONC 33.3 g/dL (33.0-36.5); MEAN CORPUSCULAR VOLUME 93.3 FL (78-98); MEAN PLATELET VOLUME 8.5 FL (7.4-10.4); MONOCYTES # (AUTO) 0.4 X10'3 (0-0.9); MONOCYTES % (AUTO) 7.6 % (2-12); NEUTROPHILS # (AUTO) 3.3 X10'3 (1.8-7.7); NEUTROPHILS % (AUTO) 71.2 % (42-75); PLATELET COUNT 214 X10'3 (140-440); RED BLOOD COUNT 3.79 X10'6 (4.20-5.60); RED CELL DISTRIBUTION WIDTH 16.4 % (11.5-14.5); WHITE BLOOD COUNT 4.6 X10'3 (4.5-11.0)
--- NOTE | 2019-10-21 06:21 | NUR ---
Problems reprioritized. Patient report given, questions answered & plan of care reviewed with Glenis CARVALHO.
--- NOTE | 2019-10-21 06:36 | NUR ---
Patient in room PCU 3010. I have received report from NICOLE and had the opportunity to ask questions and assume patient care. PT RESTING COMFORTABLY IN BED
[2019-10-21] MEDS ORDERED: furosemide 40mg/4ml inj IV SCH (08:00)
[2019-10-21] MEDS: K and/or MAG REPLACEMENT MC SCH ×2 (08:00→20:00)
[2019-10-21] MEDS ORDERED: levoFLOXACIN-Levaquin 500mg/D5 100 ML IV SCH (08:00)
[2019-10-21] MEDS: albuterol 2.5 MG/3 ML nebule NEB SCH ×5 (08:00→23:44)
[2019-10-21] MEDS: docusate sod 100mg capsule PO SCH ×2 (08:00→20:00)
[2019-10-21] MEDS: methylPREDNISolone sod succ/PF 40mg inj. IV SCH ×2 (08:39→22:55)
[2019-10-21] MEDS: oseltamivir phos 75mg capsule PO SCH ×2 (08:39→20:47)
[2019-10-21] MEDS: heparin, porcine 5000 units/ml vial SQ SCH ×2 (08:40→20:46)
[2019-10-21] MEDS: levoFLOXACIN-Levaquin 500mg/D5 100 ML IV SCH (08:43)
--- NOTE | 2019-10-21 14:23 | NUR ---
O2 Sat at rest on room air:___% If below 89%: Recovery O2 Sat at rest on _2__LPM:_91__%:___% via (mask/nasal cannula, etc..) No further documentation is necessary. If O2 Sat did not drop below 89% on room air,ambulate patient on room air. O2 Sat while ambulating on room air:_83__% Recovery O2 Sat while ambulating on ___LPM:_87__% No further documentation is necessary. If patient does not drop below 89% while ambulating, he/she does not qualify for home O2.
--- NOTE | 2019-10-21 14:36 | NUR ---
Patient in room PCU 3010. I have received report from Leigh CARVALHO and had the opportunity to ask questions and assume patient care. Float from Med/Surg.
--- NOTE | 2019-10-21 15:09 | NUR ---
Problems reprioritized. Patient report given, questions answered & plan of care reviewed with MAIA ANDRADE.
--- NOTE | 2019-10-21 18:30 | NUR ---
Problems reprioritized. Patient report given, questions answered & plan of care reviewed with Felice CARVALHO.
--- NOTE | 2019-10-21 18:46 | NUR ---
Patient in room PCU 3010. I have received report from MAIA Trejo and had the opportunity to ask questions and assume patient care. Patient on 2L NC and saline locked. Stable at this time. Will continue to monitor closely.
[2019-10-21] MEDS: lactobacillus rhamnosus 10,000 MMU CELLS/CAPSULE PO SCH (20:47)
[2019-10-21] MEDS: insulin glargine (Lantus) pen - multi-dose SQ SCH (21:00)
[2019-10-22 03:00] VITALS: BP 151/58
[2019-10-22] MEDS: albuterol 2.5 MG/3 ML nebule NEB SCH ×3 (04:09→11:49)
[2019-10-22 06:00] LABS: BASOPHILS % (AUTO) 0.1 % (0-1); EOSINOPHILS % (AUTO) 0 % (0-6); HEMATOCRIT 36.4 % (35.0-45.0); HEMOGLOBIN 12.1 g/dl (12.0-16.0); LYMPHOCYTES # (AUTO) 1.1 X10'3 (1.1-4.8); LYMPHOCYTES % (AUTO) 16.4 % (21-51); MEAN CORPUSCULAR HEMOGLOBIN 31.1 PG (27.0-31.0); MEAN CORPUSCULAR HGB CONC 33.3 g/dL (33.0-36.5); MEAN CORPUSCULAR VOLUME 93.3 FL (78-98); MEAN PLATELET VOLUME 8.3 FL (7.4-10.4); MONOCYTES # (AUTO) 1.2 X10'3 (0-0.9); MONOCYTES % (AUTO) 17.9 % (2-12); NEUTROPHILS # (AUTO) 4.3 X10'3 (1.8-7.7); NEUTROPHILS % (AUTO) 65.6 % (42-75); PLATELET COUNT 232 X10'3 (140-440); RED CELL DISTRIBUTION WIDTH 16.4 % (11.5-14.5); WHITE BLOOD COUNT 6.5 X10'3 (4.5-11.0)
--- NOTE | 2019-10-22 06:05 | NUR ---
Problems reprioritized. Patient report given, questions answered & plan of care reviewed with Pati Medina RN.
[2019-10-22 06:10] LABS: ALBUMIN 3.1 G/DL (3.4-5.0); ANION GAP 10 (8-16); BLOOD UREA NITROGEN 30 MG/DL (7-18); BUN/CREATININE RATIO 20.7 (6.6-38.0); CALCIUM 8.4 MG/DL (8.5-10.1); CHLORIDE 104 MMOL/L (99-107); CREATININE 1.45 MG/DL (0.40-0.90); GLUCOSE 158 MG/DL (70-104); MAGNESIUM 1.6 MG/DL (1.5-2.4); POTASSIUM 3.1 MMOL/L (3.5-5.1); SODIUM 144 MMOL/L (135-145); TOTAL CARBON DIOXIDE 30.3 MMOL/L (24-32); eGFR 35 ML/MIN
[2019-10-22 07:10] VITALS: BP 153/52
[2019-10-22] MEDS: potassium Cl 20 mEq SR tablet PO PRN (07:30)
[2019-10-22] MEDS: lactobacillus rhamnosus 10,000 MMU CELLS/CAPSULE PO SCH (07:30)
[2019-10-22] MEDS: oseltamivir phos 75mg capsule PO SCH (07:30)
[2019-10-22] MEDS: methylPREDNISolone sod succ/PF 40mg inj. IV SCH (07:30)
[2019-10-22] MEDS: heparin, porcine 5000 units/ml vial SQ SCH (07:31)
[2019-10-22] MEDS: docusate sod 100mg capsule PO SCH (07:32)
[2019-10-22] MEDS: K and/or MAG REPLACEMENT MC SCH (07:32)
--- NOTE | 2019-10-22 10:30 | NUR ---
O2 Sat at rest on room air:91___% If below 89%: Recovery O2 Sat at rest on ___LPM:___%:___% via (mask/nasal cannula, etc..) No further documentation is necessary. If O2 Sat did not drop below 89% on room air,ambulate patient on room air. O2 Sat while ambulating on room air:_86__% Recovery O2 Sat while ambulating on __2_LPM:_94__% No further documentation is necessary. If patient does not drop below 89% while ambulating, he/she does not qualify for home O2.
[2019-10-22 11:00] VITALS: BP 170/70
[2019-10-22] MEDS ORDERED: levoFLOXACIN 250mg tablet PO SCH (11:00)
[2019-10-22] MEDS ORDERED: TAM75C PO (11:36)
[2019-10-22] MEDS ORDERED: LEVO250T58 PO (11:36)
[2019-10-22] MEDS ORDERED: POTA20TA10 PO (11:36)
[2019-10-22] MEDS ORDERED: PRED20TA PO (11:36)
[2019-10-22 12:34] LABS: SMUDGE CELLS 2+; TOTAL CELLS COUNTED 100
[2019-10-22 12:35] LABS: ANISOCYTOSIS 1+; PLATELET ESTIMATE NORMAL
[2019-10-22 12:36] LABS: POLYCHROMASIA 1+
[2019-10-22 12:38] LABS: TOXIC GRANULATION 1+
--- NOTE | 2019-10-22 15:05 | NUR ---
Patient stable for discharge per MD. Patient discharge instructions given to patient and patients spouse, all questions and concerns addressed. New medications faxed to [facility] pharmacy in [place]. All belongings sent with patient. Appointment made with Dr. Myers for 10/29/19 @ 1885. PIV d/c'd from [facility], catheter intact. Patient transported off unit via wheel chair to private vehicle.
== END 2019-10-22 15:05 | disposition home or self-care (01) | DRG 193 ==
LOC: ER 11:04 → ED HOLD 16:08 → UNDOADMIN 16:25 → ED HOLD 17:54 → PCU 3S 17:54
PROVIDERS: ADMIT Internal Medicine; ATTEND Family Medicine
DX: J10.00 Influenza due to other identified influenza virus with unspecified type of pneumonia (principal); I21.A1 Myocardial infarction type 2; J96.01 Acute respiratory failure with hypoxia; J44.1 Chronic obstructive pulmonary disease with (acute) exacerbation; Z68.41 Body mass index [BMI] 40.0-44.9, adult; I13.0 Hypertensive heart and chronic kidney disease with heart failure and stage 1 through stage 4 chronic kidney disease, or unspecified chronic kidney disease; J44.0 Chronic obstructive pulmonary disease with (acute) lower respiratory infection; E11.22 Type 2 diabetes mellitus with diabetic chronic kidney disease; E11.42 Type 2 diabetes mellitus with diabetic polyneuropathy; E78.00 Pure hypercholesterolemia, unspecified; E87.6 Hypokalemia; G89.29 Other chronic pain; M54.9 Dorsalgia, unspecified; G47.33 Obstructive sleep apnea (adult) (pediatric); I50.9 Heart failure, unspecified; K21.9 Gastro-esophageal reflux disease without esophagitis; N18.3 Chronic kidney disease, stage 3 (moderate); Z79.84 Long term (current) use of oral hypoglycemic drugs; Z85.6 Personal history of leukemia; Z87.891 Personal history of nicotine dependence; Z90.710 Acquired absence of both cervix and uterus; Z88.0 Allergy status to penicillin; Z88.8 Allergy status to other drugs, medicaments and biological substances; Z91.012 Allergy to eggs; Z98.51 Tubal ligation status; Z79.899 Other long term (current) drug therapy
CPT/HCPCS: 36415; 71045; 80048; 80053; 81001; 82948; 83036; 83605; 83735; 83880; 84145; 84484; 85025; 87040; 87081; 87502; 87503; 93005; 93306; 94640; 94760; 96372; 96374; 97110; 97116; 97161; 97530; 99285; G0378; J1644; J1650; J1815; J1940; J1956; J2920; J2930

== ENCOUNTER 2020-02-13 10:55 | Outpatient (CLI) | payer MEDICARE, OTHER ==
[~2020-02-13] VITALS: Ht 154.9 cm; Wt 101.6 kg
[~2020-02-13 10:55] MED LIST changes: -AMLO5TAB4 PO; -CEFU500T66 PO; +LEVO250T58 PO; +POTA20TA10 PO; +PRED20TA PO; +TAM75C PO
[2020-02-13 11:15] LABS: TOTAL HEMOGLOBIN 9.7 G/dl (12.0-16.0)
[2020-02-13] MEDS ORDERED: albuterol 2.5 MG/3 ML nebule NEB ONE (11:45)
== END 2020-02-13 23:59 | disposition home or self-care (01) ==
LOC: RT 10:55
PROVIDERS: ATTEND Internal Medicine Pulmonary Disease
DX: R94.2 Abnormal results of pulmonary function studies (principal); J44.9 Chronic obstructive pulmonary disease, unspecified
CPT/HCPCS: 85018; 94060; 94727; 94729; 94760

== ENCOUNTER 2020-06-18 08:48 | Emergency (ER) | payer MEDICARE, OTHER ==
[~2020-06-18] VITALS: Ht 154.9 cm; Wt 100.0 kg
[~2020-06-18 08:48] MED LIST changes: -CALC-1197 PO; +CALC-1215 PO
[2020-06-18] MEDS ORDERED: diazepam inj 5 MG/ML inj. IV ONE (09:30)
[2020-06-18] MEDS ORDERED: morphine 4 MG/ML inj SYRINge IV PRN (09:30)
[2020-06-18] MEDS ORDERED: ondansetron/PF 4mg/2ml inj IV ONE (09:30)
[2020-06-18] MEDS ORDERED: normal saline 1000ML IV soln IVB ONE (09:30)
[2020-06-18] MEDS ORDERED: dexamethasone sod phosphate 10mg/ml inj IV STA (09:30)
--- NOTE | 2020-06-18 09:56 | NUR ---
PT OUT TO MRI WITH [employer] VIA WHEELCHAIR
[2020-06-18 10:05] LABS: BASOPHILS # (AUTO) 0.1 X10'3 (0-0.2); BASOPHILS % (AUTO) 1.1 % (0-1); EOSINOPHILS # (AUTO) 0.2 X10'3 (0-0.9); EOSINOPHILS % (AUTO) 2.2 % (0-6); HEMATOCRIT 31.4 % (35.0-45.0); HEMOGLOBIN 10.4 g/dl (12.0-16.0); LYMPHOCYTES # (AUTO) 1.5 X10'3 (1.1-4.8); MEAN CORPUSCULAR HEMOGLOBIN 31.4 PG (27.0-31.0); MEAN CORPUSCULAR HGB CONC 33.2 g/dL (33.0-36.5); MEAN CORPUSCULAR VOLUME 94.6 FL (78-98); MEAN PLATELET VOLUME 7.9 FL (7.4-10.4); MONOCYTES # (AUTO) 1.7 X10'3 (0-0.9); MONOCYTES % (AUTO) 16.5 % (2-12); NEUTROPHILS # (AUTO) 6.5 X10'3 (1.8-7.7); NEUTROPHILS % (AUTO) 65.2 % (42-75); PLATELET COUNT 257 X10'3 (140-440); RED BLOOD COUNT 3.32 X10'6 (4.20-5.60)
[2020-06-18 10:20] LABS: ALANINE AMINOTRANSFERASE 22 U/L (12-78); ALBUMIN 3.5 G/DL (3.4-5.0); ALKALINE PHOSPHATASE 84 IU/L (46-116); ANION GAP 8 (8-16); ASPARTATE AMINO TRANSFERASE 20 U/L (10-37); BILIRUBIN,TOTAL 0.4 MG/DL (0.1-1.0); BLOOD UREA NITROGEN 33 MG/DL (7-18); BUN/CREATININE RATIO 23.2 (6.6-38.0); CALCIUM 9.6 MG/DL (8.5-10.1); CHLORIDE 106 MMOL/L (99-107); CREATININE 1.42 MG/DL (0.40-0.90); GLUCOSE 97 MG/DL (70-104); POTASSIUM 4.3 MMOL/L (3.5-5.1); SODIUM 142 MMOL/L (135-145); TOTAL CARBON DIOXIDE 27.8 MMOL/L (24-32); eGFR 36 ML/MIN
[2020-06-18 10:51] LABS: ANISOCYTOSIS 1+; NUCLEATED RED BLOOD CELLS 1 /100WBC (0-0); PLATELET ESTIMATE NORMAL; TOTAL CELLS COUNTED 100
[2020-06-18 12:25] LABS: CLARITY,URINE CLEAR (Clear); COLOR,URINE STRAW (Yellow); GLUCOSE, URINE NEGATIVE (Neg); KETONES,URINE NEGATIVE (Neg); LEUKOCYTE ESTERASE ,URINE NEGATIVE (Neg); NITRITES, URINE NEGATIVE (Neg); OCCULT BLOOD,URINE NEGATIVE (Neg); PROTEIN,URINE 30 mg/dl (Neg); UROBILINOGEN,URINE 0.2 E.U/dL (0.2-1.0)
[2020-06-18 12:33] LABS: UA COLLECTION TYPE STRAIGHT CATH
[2020-06-18 12:34] LABS: SQUAMOUS EPITHELIAL CELL,UR FEW /LPF (FEW)
[2020-06-18 12:35] LABS: BACTERIA,URINE FEW /HPF (Neg); RBC,URINE 0-2 /HPF (0-2); WBC,URINE 0-4 /HPF (0-4)
[2020-06-18 12:37] LABS: AMORPHOUS URATES 1+
[2020-06-18] MEDS ORDERED: morphine 4 MG/ML inj SYRINge IV ONE ×2 (12:50→15:20)
--- NOTE | 2020-06-18 13:21 | NUR ---
CARMEN BAY MADE AWARE BP 214/93, PATIENT ASLEEP, NO SIGNS OF DISTRESS NOTED.
[2020-06-18] MEDS ORDERED: metoprolol tartrate 1mg/ml inj IV ONE (14:15)
[2020-06-18] MEDS ORDERED: iohexol 300mg/ml 100ml inj. ONE (15:00)
--- NOTE | 2020-06-18 15:59 | NUR ---
Call to [facility] for report given to MAIA Stevens. All questions and concerns addressed.
[2020-06-18 16:31] VITALS: BP 191/90
--- NOTE | 2020-06-18 17:09 | NUR ---
BEDSIDE REPORT GIVEN TO MARK RN AT THIS TIME. ALL QUESTIONS AND CONCERNS ADDRESSED. FAMILY AT BEDISDE, AWARE OF TRANSPORTATION STATUS, ALL QUESTIONS AND CONCERNS ADDRESSED BY CARMEN BAY.
== END 2020-06-18 17:13 | disposition short-term general hospital (02) ==
LOC: ER 08:50
DX: G83.4 Cauda equina syndrome (principal); I11.0 Hypertensive heart disease with heart failure; I50.9 Heart failure, unspecified; M79.604 Pain in right leg; M79.605 Pain in left leg; G89.29 Other chronic pain; N39.498 Other specified urinary incontinence; E11.42 Type 2 diabetes mellitus with diabetic polyneuropathy; E78.00 Pure hypercholesterolemia, unspecified; J44.9 Chronic obstructive pulmonary disease, unspecified; Z90.710 Acquired absence of both cervix and uterus; Z90.89 Acquired absence of other organs; Z98.51 Tubal ligation status; Z98.890 Other specified postprocedural states; Z72.89 Other problems related to lifestyle; Z88.0 Allergy status to penicillin; Z88.8 Allergy status to other drugs, medicaments and biological substances; Z79.2 Long term (current) use of antibiotics; Z79.899 Other long term (current) drug therapy
CPT/HCPCS: 36415; 71045; 72132; 72148; 80053; 81001; 85007; 85025; 87635; 96361; 96374; 96375; 96376; 99285; C9803; J1100; J2270; J2405; J3360; J7030; Q9967; 51702; J3490

== ENCOUNTER 2024-02-15 13:03 | Emergency (ER) | payer MEDICARE, OTHER ==
[~2024-02-15] VITALS: Ht 162.6 cm; Wt 79.0 kg
[~2024-02-15 13:03] MED LIST changes: -LEVO250T58 PO; +LEVO250T74 PO; +LOSA-415 PO; -LOSA25TA96 PO; +MONT-40 PO; -MONT10TA26 PO; +POTA-197 PO; -POTA20TA10 PO
[2024-02-15] MEDS: LIDOcaine 1% W/epiNEPHrine 1:100,000 20ml vial SQ STA (14:11)
[2024-02-15] MEDS: TETanus/Pertussis (Acell)/Diphther VAC/PF (Tdap-Adult) 0.5ml syringe IMVAC ONE (15:19)
[2024-02-15 15:23] VITALS: BP 134/82; PULSE 78; RESP 16; TEMP 98.5; O2SAT 98
== END 2024-02-15 15:24 | disposition home or self-care (01) ==
LOC: ER 13:04
DX: S51.811A Laceration without foreign body of right forearm, initial encounter (principal); I11.0 Hypertensive heart disease with heart failure; I50.9 Heart failure, unspecified; E78.00 Pure hypercholesterolemia, unspecified; J44.9 Chronic obstructive pulmonary disease, unspecified; E11.9 Type 2 diabetes mellitus without complications; Z88.0 Allergy status to penicillin; Z88.8 Allergy status to other drugs, medicaments and biological substances; Z79.899 Other long term (current) drug therapy; Z79.2 Long term (current) use of antibiotics; Z98.890 Other specified postprocedural states; Z90.710 Acquired absence of both cervix and uterus; Z98.51 Tubal ligation status; W19.XXXA Unspecified fall, initial encounter; Y93.89 Activity, other specified; Y92.89 Other specified places as the place of occurrence of the external cause; Y99.8 Other external cause status
CPT/HCPCS: 12002; 90715; 99284; A6258; A6402; G0008; Z7610; 90471; A6446; A6449